=== PATIENT | female | born 1935 | race Caucasian/White ===

== ENCOUNTER 2018-08-02 20:35 | Emergency (ER) | payer OTHER ==
[~2018-08-02] VITALS: Ht 162.6 cm; Wt 59.0 kg
[~2018-08-02 20:35] MED LIST: AMOX TR-K CLV 51 TAB; NEXIUM40 MG/PACK PO; ULTRAM50 MG
[2018-08-02] MEDS ORDERED: LISINOPRIL10 MG (21:03)
== END 2018-08-03 00:38 | disposition home or self-care (01) ==
LOC: ER 20:35
DX: I16.0 Hypertensive urgency (principal); I10 Essential (primary) hypertension

== ENCOUNTER 2022-07-22 10:43 | Emergency (ER) | payer OTHER ==
[~2022-07-22] VITALS: Ht 160 cm; Wt 48.1 kg
[~2022-07-22 10:43] MED LIST changes: +LISINOPRIL10 MG
== END 2022-07-22 13:55 | disposition home or self-care (01) ==
LOC: ER 10:43
DX: M54.31 Sciatica, right side (principal)